=== PATIENT | female | born 1965 | race Hispanic/Latino ===

== ENCOUNTER → 2018-02-28 | Outpatient (CLI) | payer OTHER ==
--- NOTE | 2018-02-28 14:11 | Diagnostic Imaging Report ---
EXAM: Complete Abdominal Ultrasound INDICATION: Abdominal pain. Diabetes. COMPARISON: None. TECHNIQUE: Transverse and longitudinal images of the upper abdomen were obtained. FINDINGS: Liver: Size: 16.0 cm in the right midclavicular line, normal Appearance: Increased echogenicity, smooth contour Mass: No focal masses Spleen: Size: 8.2 cm in length, normal Echogenicity: Normal Mass: No focal masses Gallbladder: Stones/Sludge: None Wall: 0.2 cm Appearance: No wall thickening, pericholecystic fluid or hydrops. Sonographic [place]'s Sign: Negative Bile Ducts: Intrahepatic Ducts: No dilatation Extrahepatic Ducts: Common bile duct measures 0.3 cm, no dilatation Pancreas: Not well seen Kidneys: Length: Right 11.1 cm Left 9.7 cm Echogenicity: Normal Collecting System: No hydronephrosis Stone: None Cyst/Mass: None Vessels: Aorta: Visualized portions are normal Inferior Vena Cava: Visualized portions are normal Main Portal Vein: 0.8 cm, normal size with hepatopetal flow. Free Fluid: No ascites or pleural effusion IMPRESSION: The pancreas is not well seen. Increased echogenicity in the liver could be due to fatty infiltration. Otherwise, unremarkable abdominal ultrasound. Signed by: Dr. Gen Mae M.D. on 02/28/2018 2:08 PM
== END ==
LOC: US 12:43
PROVIDERS: ATTEND Internal Medicine Gastroenterology
DX: R10.11 Right upper quadrant pain (principal); E11.9 Type 2 diabetes mellitus without complications; E66.9 Obesity, unspecified; Z71.3 Dietary counseling and surveillance
CPT/HCPCS: 76700